=== PATIENT | female | born 1950 | race Caucasian/White ===

== ENCOUNTER → 2016-08-19 | Outpatient (CLI) | payer OTHER, MEDICARE | END | disposition home or self-care (01) | LOC: C.PATHSPEC 17:45 | PROVIDERS: ATTEND Surgery | DX: L72.3 Sebaceous cyst (principal) ==

== ENCOUNTER → 2016-11-16 | Outpatient (CLI) | payer OTHER, MEDICARE ==
--- NOTE | 2016-11-17 12:17 | MAMMOGRAPHY REPORT ---
BILATERAL DIGITAL SCREENING MAMMOGRAM WITH CAD: 11/16/2016 CLINICAL HISTORY: Routine screening. Patient has no complaints. TECHNIQUE: Bilateral CC and MLO views were obtained. Current study was also evaluated with a Comput er Aided Detection (CAD) system. COMPARISON: Comparison is made to exams dated: 10/29/2015 mammogram, 09/14/2014 mammogram, 08/01/2013 mammogram, 05/26/2012 mammogram, 05/23/2012 mammogram, and 05/04/2011 mammogram - [facility]. BREAST COMPOSITION: There are scattered areas of fibroglandular density in both breasts. FINDINGS: There are a few stable punctate microcalcifications in the anterior subareolar right [address]. A nodular asymmetry projecting over the inferior right pectoralis muscle on the MLO view appear s very similar to the 08/01/2013 mammogram, therefore likely benign. No new suspicious mass, jen ectural distortion or cluster of microcalcifications is seen. IMPRESSION: ACR BI-RADS CATEGORY 2: BENIGN There is no mammographic evidence of malignancy. A 1 year screening mammogram is recommended. The p atient will receive written notification of the results. Approximately 10% of breast cancers are not detected with mammography. A negative mammographic repor t should not delay biopsy if a clinically suggestive mass is present. Chuyita Aragon M.D. ay/:11/16/2016 16:39:12 Solar Installer Technician: Ludmila WHITEHEAD)([place]), [facility] letter sent: Normal 1/2 BI-RADS Code: ACR BI-RADS Category 2: Benign
== END | disposition home or self-care (01) ==
LOC: C.MAMM 10:28
PROVIDERS: ATTEND Obstetrics & Gynecology
DX: Z12.31 Encounter for screening mammogram for malignant neoplasm of breast (principal)

== ENCOUNTER → 2017-04-23 | Outpatient (CLI) | payer OTHER, MEDICARE ==
[2017-04-23 11:22] LABS: ALT/SGPT 30 U/L (12-78); BLOOD UREA NITROGEN 18 mg/dl (7-18); BUN/CREATININE RATIO 27.3 (10-20); CARBON DIOXIDE 29 mmol/L (21-32); CHLORIDE 108 mmol/L (98-107); CHOLESTEROL 167 mg/dl (0-200); CREATININE 0.66 mg/dl (0.60-1.20); GLUCOSE 95 mg/dl (70-99); POTASSIUM 4.2 mmol/L (3.5-5.1); SODIUM 141 mmol/L (136-145); TRIGLYCERIDES 133 mg/dl (0-150); VERY LOW DENSITY LIPOPROT CALC 27 mg/dl
[2017-04-23 11:25] LABS: ALB/GLOB RATIO 1.2 (0.9-2); ALKALINE PHOSPHATASE 82 U/L (45-117); AST/SGOT 22 U/L (15-37); CHOLESTEROL/HDL RATIO 2.8; HDL CHOLESTEROL 60 mg/dl; LDL CHOLESTEROL CALCULATED 80 mg/dl
[2017-04-23 11:28] LABS: ESTIMATED AVERAGE GLUCOSE 123 mg/dl; HA1C FLAG Normal (Normal)
== END | disposition home or self-care (01) ==
LOC: C.LABBC 07:44
PROVIDERS: ATTEND Internal Medicine
DX: I10 Essential (primary) hypertension (principal); E78.5 Hyperlipidemia, unspecified; R73.03 Prediabetes; M85.80 Other specified disorders of bone density and structure, unspecified site

== ENCOUNTER → 2017-05-03 | Outpatient (CLI) | payer OTHER, MEDICARE | END | disposition home or self-care (01) | LOC: C.PAPS 11:22 | PROVIDERS: ATTEND Obstetrics & Gynecology | DX: Z12.4 Encounter for screening for malignant neoplasm of cervix (principal) ==

== ENCOUNTER → 2017-05-18 | Outpatient (CLI) | payer OTHER, MEDICARE | END | disposition home or self-care (01) | LOC: C.LABSPEC 16:55 → C.PATHSPEC 16:56 | PROVIDERS: ATTEND Surgery | DX: L72.0 Epidermal cyst (principal) ==

== ENCOUNTER → 2017-05-27 | Outpatient (CLI) | payer OTHER, MEDICARE | END | disposition home or self-care (01) | LOC: C.MAMM 13:07 | PROVIDERS: ATTEND Physician Assistant Medical | DX: M85.851 Other specified disorders of bone density and structure, right thigh (principal); M85.852 Other specified disorders of bone density and structure, left thigh ==

== ENCOUNTER → 2017-11-17 | Outpatient (CLI) | payer OTHER, MEDICARE ==
--- NOTE | 2017-11-17 15:21 | MAMMOGRAPHY REPORT ---
BILATERAL DIGITAL SCREENING MAMMOGRAM TOMOSYNTHESIS WITH CAD: 11/17/2017 CLINICAL HISTORY: Routine screening. Patient has no complaints. TECHNIQUE: Breast tomosynthesis in addition to standard 2D mammography was performed. Current study was also evaluated with a Computer Aided Detection (CAD) system. COMPARISON: Comparison is made to exams dated: 11/16/2016 mammogram, 10/29/2015 mammogram, 09/14/2014 ma mmogram, 08/01/2013 mammogram, 05/26/2012 mammogram, and 05/23/2012 mammogram - [facility]. BREAST COMPOSITION: There are scattered areas of fibroglandular density in both breasts. FINDINGS: No suspicious masses, calcifications, or areas of architectural distortion are noted in ei ther breast. There has been no significant interval change compared to prior exams. IMPRESSION: ACR BI-RADS CATEGORY 1: NEGATIVE There is no mammographic evidence of malignancy. A 1 year screening mammogram is recommended. The pa tient will receive written notification of the results. Approximately 10% of breast cancers are not detected with mammography. A negative mammographic report should not delay biopsy if a clinically suggestive mass is present. Sharon Velazquez M.D. /:11/17/2017 11:06:38 Kindergarten Tutor: Savannah Abdullahi, [facility] letter sent: Normal 1/2 BI-RADS Code: ACR BI-RADS Category 1: Negative
== END | disposition home or self-care (01) ==
LOC: C.MAMM 10:15
PROVIDERS: ATTEND Obstetrics & Gynecology
DX: Z12.31 Encounter for screening mammogram for malignant neoplasm of breast (principal)

== ENCOUNTER 2022-06-02 21:24 | Inpatient (IN) ==
[2022-06-03 02:30] LABS: Basophils # (auto) 0.04 K/uL (0-0.2); Basophils % (auto) 0.3 %; Eosinophils # (auto) 0.32 K/uL (0-0.50); Eosinophils % (auto) 2.7 %; Hematocrit (blood only) 39.1 % (34.1-44.9); Hemoglobin 13.3 g/dl (12.0-16.0); Immature Granulocytes % (auto) 0.8 %; Lymphocytes # (auto) 1.79 K/uL (1.2-3.4); Lymphocytes % (auto) 15.2 %; Mean Corpuscular Hemoglobin 29.4 pg (25.0-34.0); Mean Corpuscular Volume 86.5 fL (80.0-100.0); Mean Platelet Volume 10.2 fL (9.4-12.3); Monocytes # (auto) 0.78 K/uL (0.24-0.82); Monocytes % (auto) 6.6 %; Neutrophils # (auto) 8.78 K/uL (1.4-6.5); Neutrophils % (auto) 74.4 %; Platelet Count 167 K/uL (130-400); RDW Coefficient of Variation 13.2 % (11.5-14.5); RDW Standard Deviation 41.5 fL (36.4-46.3); Red Blood Count 4.52 M/uL (3.93-5.22); White Blood Count 11.81 K/ul (4.8-10.8)
[2022-06-03 02:54] LABS: Albumin Globulin Ratio 1.3 (0.9-2); BUN Creatinine Ratio 40.8 (10-20); Bilirubin,Total 0.5 mg/dl (0.2-1.0); Calcium 9.3 mg/dl (8.5-10.1); Creatinine Clr Calc Pharmacy 75.1 ml/min; Est GFR (African American) 98.6 ml/min; Est GFR (Non-African American) 85.1 ml/min; Potassium 3.9 mmol/L (3.5-5.1)
[2022-06-03] MEDS ORDERED: SODIUM CHLORIDE 0.9% 500 ML IV ONE (03:00)
[2022-06-03] MEDS ORDERED: OPTIRAY 320 500ml IV ONE (05:11)
--- NOTE | 2022-06-03 06:14 | Emergency Department Note ---
History of Present Illness General Chief complaint: Leg Injury/Pain Stated complaint: PAIN AND SWELLING LEFT LEG Time Seen by Provider: 06/03/22 00:55 Source: patient Mode of arrival: ambulatory Limitations: no limitations History of Present Illness Provider complaint: left leg pain and swelling Maximum Pain Intensity: 5 This is a 72-year-old female presents emergency department complaining of left lower extremity pain and swelling. Patient states she typically does squats on a regular basis and over the weekend did more scratch than usual. She states the next day when she had pain she thought it was from this change in her exercise. She states yesterday pain was worse still and she began noticing swelling in her leg. She states today it was painful with walking and the pain was persistent and swelling appeared worse. She denied any paresthesias or specific joint pain. She denies any right lower extremity pain or swelling. She denies any change in medication or diet. No recent illness. No prior history of DVT. No change in urine or stools. No history of CHF. Home Medications Medication Instructions Recorded Confirmed Type calcium carbonate 600 mg-vitamin 1 cap PO DAILY 06/19/20 06/03/22 History D3 5 mcg (200 unit) capsule cholecalciferol (vitamin D3) 125 1,000 unit PO DAILY 12/31/20 06/03/22 History mcg (5,000 unit) capsule atorvastatin 10 mg tablet 10 mg PO DAILY 06/03/22 06/03/22 History lisinopril 20 mg tablet 20 mg PO DAILY 06/03/22 06/03/22 History Allergies Allergy/AdvReac Type Severity Reaction Status Date / Time Penicillins Allergy Unknown Unknown Verified 06/03/22 01:37 amlodipine AdvReac Intermediate fatigue Verified 06/03/22 01:37 atenolol AdvReac Intermediate Fatigued Verified 06/03/22 01:37 metoprolol [From Lopressor] AdvReac Intermediate Fatigued Verified 06/03/22 01:37 Past Med/Surg History Medical History (Updated 06/04/22 @ 08:51 by Jacey Ryder DO) Abnormal finding on mammography Adenomatous polyp of sigmoid colon Cough Cough due to CRISTIANA inhibitor DVT (deep venous thrombosis) Confirmed by lower extremity Doppler as well as CT abdomen pelvis on 06/02/2022. DVT extends from the IVC to the common iliac to the internal iliac to the external iliac to the femoral vein and to the superficial femoral veins. Dyslipidemia Endometrial polyp H/O varicella History of colonic polyps Hoarseness Hypertension Osteopenia Postmenopausal Prediabetes Vitamin D deficiency Surgical History H/O exploratory laparotomy ruptured bladder at age 3 years History of excision of lesion From trunk, on left S/P tooth extraction Status post hysteroscopic polypectomy Family History Sister Glioblastoma multiforme Mother Osteoarthritis Congestive heart failure Stroke syndrome Father Acute myocardial infarction Hypertension Hyperlipidemia Myocardial infarction Uncle Colon cancer Unknown Ovarian cancer Aunt Pancreatic cancer Aunt Acute myocardial infarction Myocardial infarction Aunt Myocardial infarction Denies family history of Breast cancer Social History Smoking Status: Unknown if ever smoked Second Hand Exposure: No; Do You Dip or Chew Tobacco: No; Tobacco Cessation Education Requested by Patient: No Hx Alcohol Use: No Hx Substance Use: No Preferred Language: German Communication Ability: Effective Visual Impairment: Limited Hearing Ability: Normal Senior It Engineer Required: No Beliefs That Will Affect Care: None marital status: Current Living Situation: Spouse current occupational status: retired Other Information That Helps Us Care for You: No Feels Safe at Home: Yes Safety Concerns: Feels Safe At This Time Childhood Exposure to Second-Hand Smoke: No caffeine: No Dental Care, Regularly: Yes Physical Activity Frequency: 5-6 Times per Week Seatbelt Use: always Sunscreen Use: Yes Do you think of yourself as: straight/heterosexual Assistive Devices: None Review of Systems A total of 10 systems reviewed and were otherwise negative All systems reviewed & are unremarkable except as noted in HPI & below Physical Exam Vital Signs Vital Signs - 24 hr 06/03/22 09:00 Pulse Rate [Finger] 84 Pulse Rhythm [Finger] Regular Pulse Strength [Finger] Normal Respiratory Rate 18 Respiratory Effort / Characteristics Non-Labored Respiratory Depth Normal Respiratory Pattern Regular Blood Pressure [Right Arm] 151/89 H Blood Pressure Mean [Right Arm] 109 Blood Pressure Position [Right Arm] Lying Pulse Oximetry 98 Oxygen Delivery Method Room Air GENERAL: alert, well appearing, well nourished, no distress, non-toxic EYE EXAM: normal conjunctiva, PERRL and EOM's grossly intact OROPHARYNX: no exudate, no erythema, lips, buccal mucosa, and tongue normal and mucous membranes are moist NECK: supple, no nuchal rigidity, no adenopathy, non-tender LUNGS: Clear to auscultation. Normal chest wall mechanics, no w/r/r HEART: no murmurs, S1 normal and S2 normal ABDOMEN: abdomen soft, non-tender, normo-active bowel sounds, no masses, no rebound or guarding. BACK: Back is symmetrical on inspection and there is no deformity, no midline tenderness, no CVA tenderness. SKIN: no rashes and no bruising UPPER EXTREMITIES: upper extremities are grossly normal. FROM, nml pulses b/l. LOWER EXTREMITIES: No pitting edema. FROM, nml pulses b/l. Pain with palpation in the area of the anterior aspect of the left proximal lower extremity. Edema is generally noted to the left lower extremity although not pitting. No joint effusion. No petechiae. NEURO EXAM: Normal sensorium, cranial nerves II-XII grossly intact, normal speech, no gross weakness of arms, no gross weakness of legs. Gross sensation intact. Course Administered Medications Atorvastatin Calcium (Atorvastatin 10 Mg Tab) 10 mg PO DAILY [facility] Stop: 07/03/22 12:04 Last Admin: 06/04/22 07:58 Dose: 10 mg Documented By: JOSE ALBERTO Admin: 06/03/22 13:41 Dose: 10 mg Documented By: NICOLÁS Calcium/Vitamin D (Calcium 600mg + Vit D 400 Iu Tab) 1 tab PO DAILY [facility] Stop: 07/04/22 08:59 Last Admin: 06/04/22 07:58 Dose: 1 tab Documented By: JOSE ALBERTO Heparin Sodium/Dextrose (Heparin Sodium/Dextrose) 25,000 units in 500 mls @ 24 mls/hr IV .[id number] [facility]; Protocol Stop: 07/03/22 08:59 Last Titration: 06/04/22 08:41 Dose: 1,100 units/hr, 22 mls/hr Documented By: JOSE ALBERTO Co-signed By: RADHA Admin: 06/04/22 03:46 Dose: 1,150 units/hr, 23 mls/hr Documented By: VINOD Co-signed By: JOHANNA Titration: 06/04/22 03:46 Dose: 1,150 units/hr, 23 mls/hr Documented By: VINOD Co-signed By: JOHANNA Titration: 06/03/22 19:03 Dose: 1,150 units/hr, 23 mls/hr Documented By: VINOD Co-signed By: NICOLÁS Titration: 06/03/22 17:24 Dose: 1,150 units/hr, 23 mls/hr Documented By: NICOLÁS Co-signed By: MG Admin: 06/03/22 09:09 Dose: 1,200 units/hr, 24 mls/hr Documented By: DE Co-signed By: GENTRY Lisinopril (Lisinopril 20 Mg Tab) 20 mg PO DAILY [facility] Stop: 07/03/22 12:04 Last Admin: 06/04/22 07:58 Dose: 20 mg Documented By: SMKiet Admin: 06/03/22 13:41 Dose: 20 mg Documented By: NICOLÁS Vitamin D (Cholecalciferol 1,000 Units 25 Mcg Tab) 1,000 units PO DAILY [facility] Stop: 07/04/22 08:59 Last Admin: 06/04/22 07:58 Dose: 1,000 units Documented By: SMKiet Discontinued Medications Enoxaparin Sodium (Enoxaparin 150 Mg/Ml Syr) 135 mg SQ Q24H [facility] Stop: 07/03/22 07:59 Last Admin: 06/03/22 09:12 Dose: Not Given Documented By: DE Heparin Sodium (Porcine) (Heparin Sod (Porcine) 1000 Unit/Ml) 1 units IV NOW ONE Stop: 06/03/22 08:50 Last Admin: 06/03/22 09:10 Dose: Not Given Documented By: DE Heparin Sodium (Porcine) (Heparin Sod (Porcine) 1000 Unit/Ml) 5,000 units IV NOW ONE Stop: 06/03/22 09:01 Last Admin: 06/03/22 09:10 Dose: 5,000 units Documented By: DE Co-signed By: GENTRY Heparin Sodium/Dextrose (Heparin Iv Adult Wt-Based Standard With Bolus Protocol) 1 each IV NOW STA; Protocol Stop: 06/03/22 08:34 Last Admin: 06/03/22 09:33 Dose: Not Given Documented By: DE Heparin Sodium/Dextrose (Heparin Iv Adult Wt-Based Standard With Bolus Protocol) 1 each IV Q15M STA; Protocol Stop: 06/03/22 08:37 Last Admin: 06/03/22 09:33 Dose: Not Given Documented By: AP Sodium Chloride (Nss) 500 mls @ 999 mls/hr IV .Q31M ONE Stop: 06/03/22 03:30 Last Infusion: 06/03/22 04:20 Dose: 0 mls/hr Documented By: Admin: 06/03/22 03:48 Dose: 999 mls/hr Documented By: MARLEN Ioversol (Optiray 320 500ml) 119 ml IV ONCE ONE Stop: 06/03/22 05:12 Last Admin: 06/03/22 05:12 Dose: 119 ml Documented By: HANH Perflutren Lipid Microsphere (Perflutren Lipid Microsphere (Definity)) 2 ml IV ONCE ONE Stop: 06/03/22 14:48 Last Admin: 06/03/22 14:48 Dose: 2 ml Documented By: CINTHIA Critical Care Time Critical Care Time: Yes Total Critical Care Time: 46 Critical care of 46 min performed to assess and manage high likelihood of life- threatening extensive and proximal DVT, involving labs and imaging performed with assessment to evaluate extensive and proximal DVT diagnosis with frequent reassessment. This time includes bedside time, treatment discussions with patient/family/consultants, documentation time and excludes procedure time. Medical Decision Making Differential Diagnosis Differential diagnosis includes etiology such as DVT, superficial thrombophlebitis, Casillas's cyst, musculoskeletal strain, acute tendon rupture, infection, trauma, and others were considered. Medical Records Attestation: I reviewed the patient's medical records. Home Medications Current Medication List: was personally reviewed by me Laboratory Data Attestation: I reviewed the patient's lab results. Result diagrams: 06/04/22 06:00 06/04/22 06:00 Lab Results 06/03/22 06/03/22 06/03/22 Range/Units 02:22 02:22 02:22 WBC 11.81 H (4.8-10.8) K/ul RBC 4.52 (3.93-5.22) M/uL Hgb 13.3 (12.0-16.0) g/dl Hct 39.1 (34.1-44.9) % MCV 86.5 (80.0-100.0) fL MCH 29.4 (25.0-34.0) pg MCHC 34.0 (32.0-36.0) g/dL RDW Std Deviation 41.5 (36.4-46.3) fL RDW Coeff of Lianne 13.2 (11.5-14.5) % Plt Count 167 (130-400) K/uL MPV 10.2 (9.4-12.3) fL Immature Gran % (Auto) 0.8 % Neut % (Auto) 74.4 % Lymph % (Auto) 15.2 % [place] % (Auto) 6.6 % Eos % (Auto) 2.7 % Baso % (Auto) 0.3 % Neut # (Auto) 8.78 H (1.4-6.5) K/uL Lymph # (Auto) 1.79 (1.2-3.4) K/uL [place] # (Auto) 0.78 (0.24-0.82) K/uL Eos # (Auto) 0.32 (0-0.50) K/uL Baso # (Auto) 0.04 (0-0.2) K/uL Immature Gran # (Auto) 0.10 H (0.00-0.02) K/uL APTT (21.0-31.0) Seconds PTT Ratio Sodium 135 L (136-145) mmol/L Potassium 3.9 (3.5-5.1) mmol/L Chloride 102 (98-107) mmol/L Carbon Dioxide 25 (21-32) mmol/L Anion Gap 8 (3-11) BUN 29 H (6-23) mg/dl Creatinine 0.71 (0.6-1.2) mg/dl Est Cr Clr Drug Dosing 75.1 ml/min Est GFR ( Amer) 98.6 ml/min Est GFR (Non-Af Amer) 85.1 ml/min BUN/Creatinine Ratio 40.8 H (10-20) Glucose 109 H (70-99(Fasting)) mg/dl Calcium 9.3 (8.5-10.1) mg/dl Total Bilirubin 0.5 (0.2-1.0) mg/dl AST 16 (13-39) U/L ALT 16 (7-52) U/L Alkaline Phosphatase 68 (34-104) U/L Total Creatine Kinase 106 (26-192) U/L Total Protein 7.0 (6.0-8.3) gm/dl Albumin 4.0 (3.4-5.0) gm/dl Globulin 3.0 (2.5-4.0) gm/dl Albumin/Globulin Ratio 1.3 (0.9-2) Folate 14.78 (>5.38) ng/ml SARS-CoV-2 (PCR) (Negative) Influenza Type A (PCR) (Neg) Influenza Type B (PCR) (Neg) RSV (RT-PCR) (Neg) 06/03/22 06/03/22 Range/Units 07:25 08:42 WBC (4.8-10.8) K/ul RBC (3.93-5.22) M/uL Hgb (12.0-16.0) g/dl Hct (34.1-44.9) % MCV (80.0-100.0) fL MCH (25.0-34.0) pg MCHC (32.0-36.0) g/dL RDW Std Deviation (36.4-46.3) fL RDW Coeff of Lianne (11.5-14.5) % Plt Count (130-400) K/uL MPV (9.4-12.3) fL Immature Gran % (Auto) % Neut % (Auto) % Lymph % (Auto) % [place] % (Auto) % Eos % (Auto) % Baso % (Auto) % Neut # (Auto) (1.4-6.5) K/uL Lymph # (Auto) (1.2-3.4) K/uL [place] # (Auto) (0.24-0.82) K/uL Eos # (Auto) (0-0.50) K/uL Baso # (Auto) (0-0.2) K/uL Immature Gran # (Auto) (0.00-0.02) K/uL APTT 23.5 (21.0-31.0) Seconds PTT Ratio 0.9 Sodium (136-145) mmol/L Potassium (3.5-5.1) mmol/L Chloride (98-107) mmol/L Carbon Dioxide (21-32) mmol/L Anion Gap (3-11) BUN (6-23) mg/dl Creatinine (0.6-1.2) mg/dl Est Cr Clr Drug Dosing ml/min Est GFR ( Amer) ml/min Est GFR (Non-Af Amer) ml/min BUN/Creatinine Ratio (10-20) Glucose (70-99(Fasting)) mg/dl Calcium (8.5-10.1) mg/dl Total Bilirubin (0.2-1.0) mg/dl AST (13-39) U/L ALT (7-52) U/L Alkaline Phosphatase (34-104) U/L Total Creatine Kinase (26-192) U/L Total Protein (6.0-8.3) gm/dl Albumin (3.4-5.0) gm/dl Globulin (2.5-4.0) gm/dl Albumin/Globulin Ratio (0.9-2) Folate (>5.38) ng/ml SARS-CoV-2 (PCR) NEGATIVE (Negative) Influenza Type A (PCR) Negative (Neg) Influenza Type B (PCR) Negative (Neg) RSV (RT-PCR) Negative (Neg) Imaging Data My Impression: xr femur: no obvious fracture or dislocation Radiologist's Impression: Abdomen/Pelvis CT 06/03/22 04:08 CT OF THE ABDOMEN AND PELVIS WITH CONTRAST CLINICAL HISTORY: prox DVT LLE COMPARISON STUDY: None. TECHNIQUE: Following IV administration of 119 mL of Optiray, axial images of the abdomen and pelvis were obtained from the lung bases to the proximal femurs. Images were reviewed in the axial, sagittal, and coronal planes. IV contrast was administered without complication. Automated exposure control was utilized for the study. A dose lowering technique was utilized adhering to the principles of ALARA. CT DOSE: 803.17 mGy.cm FINDINGS: Please note that the chest CT will be reported separately. There is a small hiatal hernia. No pneumatosis, free air or portal venous gas is present. Liver, spleen spleen and pancreas are unremarkable as are the kidneys. There is a 1.6 cm left adrenal nodule and a 1 cm right adrenal nodule. No abdominal or pelvic lymphadenopathy is present. No evidence for a bowel obstruction. Caliber and wall thickness of small and large bowel are normal. There is extensive thrombus within the left common iliac, external iliac, internal iliac, common femoral and visualized portions of the superficial femoral vein. This corresponds the thrombus shown on ultrasound. Thrombus slightly extends into the IVC. There is mild compression of the left common iliac vein by the right common iliac artery. Stranding adjacent to the vessels is noted as well as within the left thigh. A 3.9 cm enhancing focus within the anterior aspect of the uterine body is present. IMPRESSION: 1. Extensive deep venous thrombus within the left common iliac, external iliac, internal iliac, common femoral and superficial femoral veins. Thrombus slightly extends into the IVC. Mild compression of the left common iliac vein by the right common iliac artery. This distribution raises the possibility of May Thurner syndrome although this typically occurs in younger patients. Vessels expanded with adjacent stranding. This thrombus is likely acute. Findings discussed with Dr. Ryder at time of dictation. 2. 3.9 cm enhancing lesion within the anterior aspect of the uterine body. This probably reflects a fibroid however a nonemergent pelvic ultrasound is recommen ded. 3. Bilateral adrenal nodules measuring up to 1.6 cm. These are indeterminate but statistically benign in the absence of known malignancy and favor adenomas. ACT 112: Negative or not required by law. Electronically signed by: Hu Terrell M.D. 06/03/2022 7:10 AM US VENOUS LEFT LOWER EXTREMITY: Extensive occlusive venous thrombus noted involving the left external iliac vein, common femoral, superficial femoral popliteal posterior tibial and peroneal veins. Radiologist: Artur Simpson MD CTA CHEST: No evidence of PE. Lungs are clear. No pleural effusions. No adenopathy. Heart size is normal. Aorta is unremarkable. Radiologist: Artur Simpson MD CT ABDOMEN & PELVIS With Contrast: INDICATION: TECHNIQUE: Multiple, contiguous axial cuts of the abdomen and pelvis are obtained from the lung bases to the ischial tuberosities following the administration of IV contrast. Sagittal and coronal reformatted images are available. COMPARISON: FINDINGS: The lung bases are clear. The liver and spleen are normal in size and free of mass lesions. The gallbladder, bile ducts and pancreas are normal. The adrenal gland are unremarkable. The kidneys are normal in size and contour. No lesion or hydronephrosis. The appendix is unremarkable, as is the rest of the GI tract. Aorta is normal caliber. No adenopathy or extraluminal air. The osseous structures are normal IMPRESSION:Normal enhanced CT of the abdomen and pelvis. Radiologist: Artur Simpson MD [facility] Narrative An order was placed for continuous cardiac monitoring. The monitor shows a rate of _68_ with _normal sinus_ rhythm. This is a well-appearing 72-year-old female who presents due to acute left lower extremity pain and edema which she originally thought was musculoskeletal in nature. Labs drawn and sent, and ultrasound ordered. X-ray had been ordered by nursing staff prior to my evaluation and was reviewed at bedside with the patient. Patient most concerned for DVT. Patient found to have extensive DVT extending proximally in the left lower extremity. Patient's other labs reassuring. Due to extensive and proximal nature as well as no obvious precipitating factors and no history of prior DVT, patient sent for CT chest to rule out PE as well as CT abdomen and pelvis to further evaluate for any more central extension of the proximal clot. Patient found to have some extension into the IVC. Case was discussed with hospitalist for additional evaluation and management. Patient started on heparin drip. Impression & Plan Acute pain of left lower extremity, DVT (deep venous thrombosis), Edema of left lower leg Discharge Plan Visit Data Chief Complaint: Leg Injury/Pain Stated Complaint: PAIN AND SWELLING LEFT LEG ED Provider: Jacey Ryder Discharge Problem: Acute pain of left lower extremity, DVT (deep venous thrombosis), Edema of left lower leg Patient Disposition: Admitted As Inpatient Discharge Instructions Interventions: ED Discharge Assessment Last Done: 06/03/22 10:47
[2022-06-03] MEDS ORDERED: ENOXAPARIN 1.5 MG/KG SC STA (07:09)
--- NOTE | 2022-06-03 07:12 | CT Scan Report ---
CT OF THE ABDOMEN AND PELVIS WITH CONTRAST CLINICAL HISTORY: prox DVT LLE COMPARISON STUDY: None. TECHNIQUE: Following IV administration of 119 mL of Optiray, axial images of the abdomen and pelvis w ere obtained from the lung bases to the proximal femurs. Images were reviewed in the axial, sagittal, and coronal planes. IV contrast was administered without complication. Automated exposure control w as utilized for the study. A dose lowering technique was utilized adhering to the principles of MILAGROS Alatorre. CT DOSE: 803.17 mGy.cm FINDINGS: Please note that the chest CT will be reported separately. There is a small hiatal hernia. No pneumatosis, free air or portal venous gas is present. Liver, spleen spleen and pancreas are unrem arkable as are the kidneys. There is a 1.6 cm left adrenal nodule and a 1 cm right adrenal nodule. No abdominal or pelvic lymphadenopathy is present. No evidence for a bowel obstruction. Caliber and wal l thickness of small and large bowel are normal. There is extensive thrombus within the left common i liac, external iliac, internal iliac, common femoral and visualized portions of the superficial femor al vein. This corresponds the thrombus shown on ultrasound. Thrombus slightly extends into the IVC. T here is mild compression of the left common iliac vein by the right common iliac artery. Stranding ad jacent to the vessels is noted as well as within the left thigh. A 3.9 cm enhancing focus within the anterior aspect of the uterine body is present. IMPRESSION: 1. Extensive deep venous thrombus within the left common iliac, external iliac, internal iliac, commo n femoral and superficial femoral veins. Thrombus slightly extends into the IVC. Mild compression of the left common iliac vein by the right common iliac artery. This distribution raises the possibility of May Thurner syndrome although this typically occurs in younger patients. Vessels expanded with ad jacent stranding. This thrombus is likely acute. Findings discussed with Dr. Ryder at time of dict ation. 2. 3.9 cm enhancing lesion within the anterior aspect of the uterine body. This probably reflects a f ibroid however a nonemergent pelvic ultrasound is recommended. 3. Bilateral adrenal nodules measuring up to 1.6 cm. These are indeterminate but statistically benign in the absence of known malignancy and favor adenomas. ACT 112: Negative or not required by law. Electronically signed by: Hu Terrell M.D. 06/03/2022 7:10 AM
--- NOTE | 2022-06-03 07:47 | Ultrasound Report ---
LEFT LOWER EXTREMITY VENOUS DOPPLER CLINICAL HISTORY: Left lower extremity edema COMPARISON STUDY: No previous studies for comparison. TECHNIQUE: Sonography of the deep venous system of the left lower extremity was performed. Compressi on and augmentation were evaluated. FINDINGS: There is extensive occlusive deep venous thrombus within the left lower extremity. The ves sels are expanded. Note is made of dependent thrombus within the left external iliac, common femoral, femoral, popliteal, posterior tibial and peroneal veins. There is also thrombus within the left grea ter saphenous, lesser saphenous and gastrocnemius veins. IMPRESSION: Extensive deep venous thrombus within the left lower extremity, including thrombus within the left iliac veins. Thrombus is likely acute. ACT 112: Negative or not required by law. Electronically signed by: Hu Terrell M.D. 06/03/2022 7:46 AM
--- NOTE | 2022-06-03 07:57 | XRay Report ---
XR femur LT 2V routine CLINICAL HISTORY: pain after workout COMPARISON: None FINDINGS: No fracture or osseous lesion within the left femur is identified. Alignment of the left h ip and left knee is anatomic. Left hip joint space is preserved. There is minimal osteophytosis of th e left hip. There is medial compartment joint space narrowing of the left knee with osteophytosis wit hin the medial and lateral compartments of the left knee. IMPRESSION: No fracture within the left femur. No osseous lesion. ACT 112: Negative or not required by law. Electronically signed by: Hu Terrell M.D. 06/03/2022 7:56 AM
[2022-06-03] MEDS ORDERED: ENOXAPARIN 150 MG/ML SYR SQ SCH (08:00)
[2022-06-03 08:16] LABS: Influenza A virus by PCR Negative (Neg); Influenza B virus by PCR Negative (Neg); RSV by PCR Negative (Neg); SARS CoV2 RNA(COVID-19) InHosp NEGATIVE (Negative)
[2022-06-03] MEDS ORDERED: Heparin IV Adult Wt-Based Standard WITH Bolus Protocol IV STA ×2 (08:33→08:36)
--- NOTE | 2022-06-03 08:42 | CT Scan Report ---
CT ANGIOGRAM OF THE CHEST CLINICAL HISTORY: Dyspnea. Lower extremity edema. Deep venous thrombosis. COMPARISON STUDY: Chest x-ray dated 04/06/2019. TECHNIQUE: Following the IV administration of 119 cc of Optiray 320, CT angiogram of the chest was pe rformed from the upper abdomen to the thoracic inlet utilizing the pulmonary embolus protocol. Images are reviewed in the axial, sagittal, and coronal planes. 3-D MIPS images are created and assessed. I V contrast was administered without complication. A dose lowering technique was utilized adhering to the principles of ALARA. FINDINGS: Thyroid: Mildly enlarged and heterogeneous. Thoracic aorta: There is moderate atherosclerotic calcification of the thoracic aorta, which is chidi l in caliber and demonstrates standard 3-vessel arch anatomy. No dissection is seen. Pulmonary vasculature: The pulmonary trunk is normal in caliber. There are no filling defects identif ied in main, lobar, or segmental pulmonary branches to suggest pulmonary embolus. Heart: The heart is top normal in size and without pericardial effusion. Lungs and pleural spaces: Evaluation of the lung parenchyma is degraded by motion artifact. There is no airspace consolidation or pleural effusion. Atelectasis is noted at the lung bases. Minimal secret ions are seen within the trachea. There is a 5 mm right lower lobe pulmonary nodule seen on image #[id number]. Mediastinum: There is no mediastinal lymphadenopathy. Zita: Clear. Axillae: There is no axillary lymphadenopathy. Upper abdomen: There is a small hiatal hernia. Bilateral adrenal adenomas measure up to 1.6 cm. Skeletal structures: The skeletal structures are osteopenic. Degenerative change is noted in the thor acic spine. No lytic or blastic bony lesions are seen. IMPRESSION: 1. There is no evidence of pulmonary embolus in the main, lobar, or segmental pulmonary arteries. 2. There is no airspace consolidation or pleural effusion. 3. There is a 5 mm right lower lobe pulmonary nodule. This is pathologically indeterminate and can be followed as per Fleischner criteria. See below. 4. Additional findings as above. Please refer to below summary of Fleischner criteria recommendations for follow-up of incidental CT n odules (Byron gInacio, Guidelines for management of small pulmonary nodules detected on CT scans: A sta tement from the Fleischner Society, Radiology 237: [phone].) SOLID NODULES Solitary nodule size: <6 mm * low risk patients: no follow-up needed * high risk patients: optional CT at 12 months Solitary nodule size: 6-8 mm * low risk patients: follow-up at 6-12 months, then consider further follow-up at 18-24 months * high risk patients: initial follow-up CT at 6-12 months and then at 18-24 months if no change Solitary nodule size: >8 mm * either low or high risk patients - consider follow-up CT at 3 months, and/or CT-PET, and/or biopsy Multiple nodules size: <6 mm * low risk patients: no routine follow-up * high risk patients: optional CT at 12 months Multiple nodules size: 6-8 mm * low risk patients: follow-up at 3-6 months, then consider further follow-up at 18-24 months * high risk patients: follow-up at 3-6 months, then at 18-24 months if no change Multiple nodules size: >8 mm * low risk patients: follow-up at 3-6 months, then consider further follow-up at 18-24 months * high risk patients: follow-up at 3-6 months, then at 18-24 months if no change Note: newly detected indeterminate nodule in persons 35 years of age or older. * low risk patients: minimal or absent history of smoking and/or other known risk factors * high risk patients: history of smoking or of other known risk factors (e.g. first degree relative with lung cancer, or exposure to asbestos, radon, uranium) * if a nodule up to 8 mm is partly solid or is ground glass further follow-up is required after 24 m onths to exclude possible slow growing adenocarcinoma (TEJAL) SUBSOLID NODULES Solitary pure ground-glass nodule * nodule size <6 mm - no CT follow-up required * nodule size >=6 mm - follow-up CT at 6-12 months, then every 2 years until 5 years Solitary part-solid nodule * nodule size <6 mm - no CT follow-up required * nodule size >=6 mm - follow-up CT at 3-6 months. If unchanged, and solid component remains <6 mm, then annual follow-up for 5 years Multiple subsolid nodules * nodule size <6 mm - follow-up CT at 3-6 months, consider further follow-up at 2 and 4 years if sta ble * nodule size >=6 mm - follow-up CT at 3-6 months, subsequent management based on the most suspiciou s nodule(s) ACT 112: Negative or not required by law. Electronically signed by: Raheem Couch M.D. 06/03/2022 8:41 AM
[2022-06-03] MEDS ORDERED: HEPARIN SOD (PORCINE) 1000 UNIT/ML IV ONE ×2 (08:49→09:00)
[2022-06-03] MEDS: HEPARIN SODIUM/DEXTROSE 25,000 UNITS/500 ML BAG IV SCH (09:09)
[2022-06-03 09:13] LABS: Partial Thromboplastin Ratio 0.9; Partial Thromboplastin Time 23.5 Seconds (21.0-31.0)
--- NOTE | 2022-06-03 09:54 | History & Physical Report ---
Date of Service June 03, 2022 Assessment & Plan (1) DVT (deep venous thrombosis): Plan: Attending: Dr. Julien Impression: 72-year-old female who was in her usual state of health until this weekend when being she began having left groin pain. Pain extended into her left upper leg and she noticed swelling of her thigh and calf. She presented to the emergency department was found to have extensive DVT from the IVC down to the superficial femoral veins. CTA of the chest was negative for pulmonary embolus or acute findings. Patient is a lifelong non-smoker with no history of malignancy or family history of thromboembolic disease. This would be classified as an unprovoked DVT without clear etiology at this time. Recommendations: * Discussed with Dr. Kelly vascular surgery. He agrees with heparin drip per protocol. Complete bedrest for 3 days and then convert to oral anticoagulation * Patient most likely will be required to be on lifelong anticoagulation * We will check a folic acid and homocystine level * Patient started on anticoagulations and no further hypercoagulable work-up at this time. If the patient is going to be on lifelong anticoagulation, no specific need for outpatient hematology but will defer to patient for this dec ision * Patient has no history of malignancy. She does have history of adenomatous polyps which have been cleared through serial colonoscopy * New imaging does reveal a right lower lobe 5 mm nodule. Follow-up CT of the chest in 3 months would be recommended. * Patient also has 3.9 cm enhancing lesion within the anterior aspect of the uterine body. While this is most likely a fibroid, will request pelvic ultrasound for further evaluation as we do not have any other explanation for the patient's DVT * Patient with bilateral adrenal nodules measuring up to 1.6 cm. Statistically benign but will review on pelvic ultrasound. * Will also check an echocardiogram to rule out PFO and adherent clot although EKG is within normal limits and there is no evidence of tachyarrhythmia. * EKG daily x2 * Patient will require monitoring on telemetry while on bedrest. (2) Dyslipidemia: Plan: * Will continue with patient's atorvastatin 10 mg daily * Further work-up as an outpatient (3) Hypertension: Plan: * Hemodynamically stable * Continue patient's home dose of lisinopril 20 mg p.o. daily * Monitor on telemetry with vital signs per protocol * EKG with no specific ST changes or arrhythmia (4) Osteopenia: Plan: * Outpatient management * In addition to patient's calcium carbonate with vitamin D, will start patient on multivitamin (5) Prediabetes: Plan: * Most recent hemoglobin A1c in January 2022 is 6.1% * No indication for BSG's or glycemic monitoring at this time * Continue with heart healthy diet (6) DVT prophylaxis: Plan: * Extensive DVT to the left lower extremity extending into the IVC. Further management as listed above * Continue heparin drip. Anticipate changing to oral anticoagulant prior to discharge Please refer to Dr. Julien's addendum for further recommendations and corrections. Admission and Anticipated Discharge Date Admission Date: Admitted on 06/03/2022. Anticipate a minimum of 3-day stay for intravenous heparin drip. History of Present Illness Chief Complaint: Left leg pain Primary Care Provider: Jeremy Toledo MD Attending: Dr. Julien This is a 72-year-old female with a past medical history including hypertension, hypercholesterolemia, osteopenia, prediabetes, vitamin D deficiency, adenomatous polyp of the sigmoid colon, obesity with a BMI of 34.2 kg/m secondary to excess calories. This is a very active female who walks 1-1/2 hours/day, she golfs, she is active with no recent periods of sedentary activity or travel. Patient was in her usual state of health until this past weekend when she started having some groin pain on the left side. This pain seemed to extend into her leg and thigh throughout the weekend. She attempted to use ice and heat as well as rubbing her leg to resolve the achiness. As this progressed patient suggested to her that it was probably a DVT and they decided to present to the emergency department for evaluation. She then had a venous Doppler study which showed extensive deep venous thrombus within the left lower extremity including th rombus within the left iliac vein. Inasmuch as this was unprovoked with no prior history of malignancy, hormone replacement, tobacco abuse history, a CT of the abdomen pelvis as well as a chest CTA was performed. This revealed extensive deep venous thrombus within the left common iliac, external iliac, internal iliac, common femoral and superficial femoral veins. The thrombus extended into the IVC. There was mild compression of the left common iliac vein by the right common iliac artery. There is also a 3.9 cm enhancing lesion within the anterior aspect of the uterine body. Bilateral adrenal nodules measuring up to 1.6 cm and are statistically benign favoring adenomas. Patient has no history of malignancy. She is up-to-date with her mammograms. She was found to have a precancerous polyp on colonoscopy and gets regular colonoscopies which have all been cleared up. Patient has a sister who in her 60s of glioblastoma. Father at age 74 of a myocardial infarction. Mother at age 92 of old age with no acute etiology. Patient is a lifelong non-smoker and has no exposure to carcinogenic's that she is aware of. Patient has no acute shortness of breath. She has no pleural pain. She has no awareness of tachyarrhythmia. She has no hypoxia on room air. Vital signs are stable including temperature is 37.0 C Case was discussed with Dr. Kelly from vascular surgery. He agrees with heparin drip for its anti-inflammatory properties and management. Currently recommending 3 days of bedrest followed by oral anticoagulation. No indication for catheter directed thrombolysis or surgical thrombolysis. Case also discussed with Dr. Julien. Please refer to his addendum for recommendations and corrections. Allergies Allergy/AdvReac Type Severity Reaction Status Date / Time Penicillins Allergy Unknown Unknown Verified 06/03/22 01:37 amlodipine AdvReac Intermediate fatigue Verified 06/03/22 01:37 atenolol AdvReac Intermediate Fatigued Verified 06/03/22 01:37 metoprolol [From Lopressor] AdvReac Intermediate Fatigued Verified 06/03/22 01:37 Home Medications Medication Instructions Recorded Confirmed Type calcium carbonate 600 mg-vitamin 1 cap PO DAILY 06/19/20 06/03/22 History D3 5 mcg (200 unit) capsule cholecalciferol (vitamin D3) 125 1,000 unit PO DAILY 12/31/20 06/03/22 History mcg (5,000 unit) capsule atorvastatin 10 mg tablet 10 mg PO DAILY 06/03/22 06/03/22 History lisinopril 20 mg tablet 20 mg PO DAILY 06/03/22 06/03/22 History Past Med/Surg History Medical History (Updated 06/03/22 @ 09:52 by Raheem Sheehan PA-C) Abnormal finding on mammography Adenomatous polyp of sigmoid colon Cough Cough due to CRISTIANA inhibitor DVT (deep venous thrombosis) Confirmed by lower extremity Doppler as well as CT abdomen pelvis on 06/02/2022. DVT extends from the IVC to the common iliac to the internal iliac to the external iliac to the femoral vein and to the superficial femoral veins. Dyslipidemia Endometrial polyp H/O varicella History of colonic polyps Hoarseness Hypertension Osteopenia Postmenopausal Prediabetes Vitamin D deficiency Surgical History H/O exploratory laparotomy ruptured bladder at age 3 years History of excision of lesion From trunk, on left S/P tooth extraction Status post hysteroscopic polypectomy Family History Sister Glioblastoma multiforme Mother Osteoarthritis Congestive heart failure Stroke syndrome Father Acute myocardial infarction Hypertension Hyperlipidemia Myocardial infarction Uncle Colon cancer Unknown Ovarian cancer Aunt Pancreatic cancer Aunt Acute myocardial infarction Myocardial infarction Aunt Myocardial infarction Denies family history of Breast cancer Social History Smoking Status: Unknown if ever smoked Second Hand Exposure: No; Do You Dip or Chew Tobacco: No; Tobacco Cessation Education Requested by Patient: No Hx Alcohol Use: No Hx Substance Use: No Preferred Language: Romansh Communication Ability: Effective Visual Impairment: Limited Hearing Ability: Normal Waste Water Or Water Plant Operator Required: No Beliefs That Will Affect Care: None marital status: Current Living Situation: Spouse current occupational status: retired Other Information That Helps Us Care for You: No Feels Safe at Home: Yes Safety Concerns: Feels Safe At This Time Childhood Exposure to Second-Hand Smoke: No caffeine: No Dental Care, Regularly: Yes Physical Activity Frequency: 5-6 Times per Week Seatbelt Use: always Sunscreen Use: Yes Do you think of yourself as: straight/heterosexual Assistive Devices: None Review of Systems Review of Systems: A total of 10 systems was reviewed and is negative other than as listed in the HPI Physical Exam Physical Exam: GENERAL : No acute distress EYES: No icterus, gaze conjugate. Pupils equal round and reactive to light NOSE: No evidence of epistaxis MOUTH: No lesions or candidiasis. Tongue is midline. No evidence of dental caries. Mucosa is moist NECK: Supple. No carotid bruits appreciated LUNGS: CTA B/L, no wheezes, rales or rhonchi HEART: Regular, rate controlled. No evidence of murmur rubs or gallop ABDOMEN: Soft, NT, ND, BS Present. Patient was not palpated deeply secondary to IVC DVT. Patient was auscultated and is in no evidence of abdominal bruit EXTREMITIES: LLE edema from the thigh to the calf, pedal pulses intact and equal bilaterally. No edema of either foot or ankle. Feet are warm NEURO: A&OX3. Pupils equal round and reactive to light. No pronator drift. Tongue is midline. No facial droop. Strength is equal and appropriate to upper and lower extremities. Cerebellar function is intact with rapid alternating movements and [id number]. Toes are downgoing bilaterally. Gait is deferred. No slurred speech or aphasia. No evidence of focal neurological deficit. Results & Data Results & Data ([facility]) Vital Signs (Past 12 Hours) Vital Signs Temp Pulse Pulse Resp BP BP Pulse Ox 06/03/22 09:00 84 18 151/89 H 98 06/03/22 06:20 102 H 18 112/84 94 06/03/22 03:48 70 20 144/68 H 96 06/02/22 21:50 37 C 115 H 20 139/76 96 O2 Del Method 06/03/22 09:00 Room Air 06/03/22 06:20 Room Air 06/03/22 03:48 Room Air 06/02/22 21:50 Room Air Critical Care Results & Data Vital Signs (Past 12 Hours) Vital Signs Temp Pulse Pulse Resp BP BP Pulse Ox 06/03/22 09:00 84 18 151/89 H 98 06/03/22 06:20 102 H 18 112/84 94 06/03/22 03:48 70 20 144/68 H 96 06/02/22 21:50 37 C 115 H 20 139/76 96 O2 Del Method 06/03/22 09:00 Room Air 06/03/22 06:20 Room Air 06/03/22 03:48 Room Air 06/02/22 21:50 Room Air Lab & Micro Results (Past 24 Hours) RBC 4.52 M/uL (3.93-5.22) 06/03/22 WBC 11.81 K/ul (4.8-10.8) H 06/03/22 Hgb 13.3 g/dl (12.0-16.0) 06/03/22 Hct 39.1 % (34.1-44.9) 06/03/22 MCV 86.5 fL (80.0-100.0) 06/03/22 MCH 29.4 pg (25.0-34.0) 06/03/22 MCHC 34.0 g/dL (32.0-36.0) 06/03/22 RDW Standard Deviation 41.5 fL (36.4-46.3) 06/03/22 RDW Coefficient of Variation 13.2 % (11.5-14.5) 06/03/22 Plt Count 167 K/uL (130-400) 06/03/22 MPV 10.2 fL (9.4-12.3) 06/03/22 Neutrophils (%) (Auto) 74.4 % 06/03/22 Lymphocytes (%) (Auto) 15.2 % 06/03/22 Monocytes # (Auto) 0.78 K/uL (0.24-0.82) 06/03/22 Eosinophils # (Auto) 0.32 K/uL (0-0.50) 06/03/22 Immature Granulocyte % (Auto) 0.8 % 06/03/22 Neutrophils # (Auto) 8.78 K/uL (1.4-6.5) H 06/03/22 Lymphocytes # (Auto) 1.79 K/uL (1.2-3.4) 06/03/22 Monocytes # (Auto) 0.78 K/uL (0.24-0.82) 06/03/22 Eosinophils # (Auto) 0.32 K/uL (0-0.50) 06/03/22 Basophils # (Auto) 0.04 K/uL (0-0.2) 06/03/22 Immature Granulocyte # (Auto) 0.10 K/uL (0.00-0.02) H 06/03 Na 135 mmol/L (136-145) L 06/03/22 K 3.9 mmol/L (3.5-5.1) 06/03/22 Cl 102 mmol/L (98-107) 06/03/22 CO2 25 mmol/L (21-32) 06/03/22 Anion Gap 8 (3-11) 06/03/22 BUN 29 mg/dl (6-23) H 06/03/22 Creatinine 0.71 mg/dl (0.6-1.2) 06/03/22 Estimated GFR ( Amer) 98.6 ml/min 06/03/22 Estimated GFR (Non-Af Amer) 85.1 ml/min 06/03/22 BUN/Creatinine Ratio 40.8 (10-20) H 06/03/22 Glu 109 mg/dl (70-99(Fasting)) H 06/03/22 Ca 9.3 mg/dl (8.5-10.1) 06/03/22 Total Bilirubin 0.5 mg/dl (0.2-1.0) 06/03/22 AST 16 U/L (13-39) 06/03/22 ALT 16 U/L (7-52) 06/03/22 Alkaline Phosphatase 68 U/L (34-104) 06/03/22 TP 7.0 gm/dl (6.0-8.3) 06/03/22 Albumin 4.0 gm/dl (3.4-5.0) 06/03/22 Globulin 3.0 gm/dl (2.5-4.0) 06/03/22 Albumin/Globulin Ratio 1.3 (0.9-2) 06/03/22 Calcium Level 9.3 mg/dl (8.5-10.1) 06/03/22 02:22 Diagnostic Findings (Past 24 Hours) Femur X-Ray 06/02/22 21:52 XR femur LT 2V routine CLINICAL HISTORY: pain after workout COMPARISON: None FINDINGS: No fracture or osseous lesion within the left femur is identified. Alignment of the left hip and left knee is anatomic. Left hip joint space is preserved. There is minimal osteophytosis of the left hip. There is medial compartment joint space narrowing of the left knee with osteophytosis within the medial and lateral compartments of the left knee. IMPRESSION: No fracture within the left femur. No osseous lesion. ACT 112: Negative or not required by law. Electronically signed by: Hu Terrell M.D. 06/03/2022 7:56 AM Venous Doppler Study 06/03/22 02:02 LEFT LOWER EXTREMITY VENOUS DOPPLER CLINICAL HISTORY: Left lower extremity edema COMPARISON STUDY: No previous studies for comparison. TECHNIQUE: Sonography of the deep venous system of the left lower extremity was performed. Compression and augmentation were evaluated. FINDINGS: There is extensive occlusive deep venous thrombus within the left lower extremity. The vessels are expanded. Note is made of dependent thrombus within the left external iliac, common femoral, femoral, popliteal, posterior tibial and peroneal veins. There is also thrombus within the left greater saphenous, lesser saphenous and gastrocnemius veins. IMPRESSION: Extensive deep venous thrombus within the left lower extremity, including thrombus within the left iliac veins. Thrombus is likely acute. ACT 112: Negative or not required by law. Electronically signed by: Hu Terrell M.D. 06/03/2022 7:46 AM Abdomen/Pelvis CT 06/03/22 04:08 CT OF THE ABDOMEN AND PELVIS WITH CONTRAST CLINICAL HISTORY: prox DVT LLE COMPARISON STUDY: None. TECHNIQUE: Following IV administration of 119 mL of Optiray, axial images of the abdomen and pelvis were obtained from the lung bases to the proximal femurs. Images were reviewed in the axial, sagittal, and coronal planes. IV contrast was administered without complication. Automated exposure control was utilized for the study. A dose lowering technique was utilized adhering to the principles of ALARA. CT DOSE: 803.17 mGy.cm FINDINGS: Please note that the chest CT will be reported separately. There is a small hiatal hernia. No pneumatosis, free air or portal venous gas is present. Liver, spleen spleen and pancreas are unremarkable as are the kidneys. There is a 1.6 cm left adrenal nodule and a 1 cm right adrenal nodule. No abdominal or pelvic lymphadenopathy is present. No evidence for a bowel obstruction. Caliber and wall thickness of small and large bowel are normal. There is extensive thrombus within the left common iliac, external iliac, internal iliac, common femoral and visualized portions of the superficial femoral vein. This corresponds the thrombus shown on ultrasound. Thrombus slightly extends into the IVC. There is mild compression of the left common iliac vein by the right common iliac artery. Stranding adjacent to the vessels is noted as well as within the left thigh. A 3.9 cm enhancing focus within the anterior aspect of the uterine body is present. IMPRESSION: 1. Extensive deep venous thrombus within the left common iliac, external iliac, internal iliac, common femoral and superficial femoral veins. Thrombus slightly extends into the IVC. Mild compression of the left common iliac vein by the right common iliac artery. This distribution raises the possibility of May Thurner syndrome although this typically occurs in younger patients. Vessels expanded with adjacent stranding. This thrombus is likely acute. Findings discussed with Dr. Ryder at time of dictation. 2. 3.9 cm enhancing lesion within the anterior aspect of the uterine body. This probably reflects a fibroid however a nonemergent pelvic ultrasound is recommended. 3. Bilateral adrenal nodules measuring up to 1.6 cm. These are indeterminate but statistically benign in the absence of known malignancy and favor adenomas. ACT 112: Negative or not required by law. Electronically signed by: Hu Terrell M.D. 06/03/2022 7:10 AM Chest CTA 06/03/22 04:08 CT ANGIOGRAM OF THE CHEST CLINICAL HISTORY: Dyspnea. Lower extremity edema. Deep venous thrombosis. COMPARISON STUDY: Chest x-ray dated 04/06/2019. TECHNIQUE: Following the IV administration of 119 cc of Optiray 320, CT angiogram of the chest was performed from the upper abdomen to the thoracic inlet utilizing the pulmonary embolus protocol. Images are reviewed in the axial, sagittal, and coronal planes. 3-D MIPS images are created and assessed. IV contrast was administered without complication. A dose lowering technique was utilized adhering to the principles of ALARA. FINDINGS: Thyroid: Mildly enlarged and heterogeneous. Thoracic aorta: There is moderate atherosclerotic calcification of the thoracic aorta, which is normal in caliber and demonstrates standard 3-vessel arch anatomy. No dissection is seen. Pulmonary vasculature: The pulmonary trunk is normal in caliber. There are no filling defects identified in main, lobar, or segmental pulmonary branches to suggest pulmonary embolus. Heart: The heart is top normal in size and without pericardial effusion. Lungs and pleural spaces: Evaluation of the lung parenchyma is degraded by mo tion artifact. There is no airspace consolidation or pleural effusion. Atelectasis is noted at the lung bases. Minimal secretions are seen within the trachea. There is a 5 mm right lower lobe pulmonary nodule seen on image #149. Mediastinum: There is no mediastinal lymphadenopathy. Zita: Clear. Axillae: There is no axillary lymphadenopathy. Upper abdomen: There is a small hiatal hernia. Bilateral adrenal adenomas measure up to 1.6 cm. Skeletal structures: The skeletal structures are osteopenic. Degenerative change is noted in the thoracic spine. No lytic or blastic bony lesions are seen. IMPRESSION: 1. There is no evidence of pulmonary embolus in the main, lobar, or segmental pulmonary arteries. 2. There is no airspace consolidation or pleural effusion. 3. There is a 5 mm right lower lobe pulmonary nodule. This is pathologically indeterminate and can be followed as per Fleischner criteria. See below. 4. Additional findings as above. Please refer to below summary of Fleischner criteria recommendations for follow- up of incidental CT nodules (Byron Ignacio, Guidelines for management of small pulmonary nodules detected on CT scans: A statement from the Fleischner Society, Radiology 237: [phone].) SOLID NODULES Solitary nodule size: <6 mm * low risk patients: no follow-up needed * high risk patients: optional CT at 12 months Solitary nodule size: 6-8 mm * low risk patients: follow-up at 6-12 months, then consider further follow-up at 18-24 months * high risk patients: initial follow-up CT at 6-12 months and then at 18-24 months if no change Solitary nodule size: >8 mm * either low or high risk patients - consider follow-up CT at 3 months, and/or CT-PET, and/or biopsy Multiple nodules size: <6 mm * low risk patients: no routine follow-up * high risk patients: optional CT at 12 months Multiple nodules size: 6-8 mm * low risk patients: follow-up at 3-6 months, then consider further follow-up at 18-24 months * high risk patients: follow-up at 3-6 months, then at 18-24 months if no change Multiple nodules size: >8 mm * low risk patients: follow-up at 3-6 months, then consider further follow-up at 18-24 months * high risk patients: follow-up at 3-6 months, then at 18-24 months if no change Note: newly detected indeterminate nodule in persons 35 years of age or older. * low risk patients: minimal or absent history of smoking and/or other known risk factors * high risk patients: history of smoking or of other known risk factors (e.g. first degree relative with lung cancer, or exposure to asbestos, radon, uranium) * if a nodule up to 8 mm is partly solid or is ground glass further follow-up is required after 24 months to exclude possible slow growing adenocarcinoma (TEJAL) SUBSOLID NODULES Solitary pure ground-glass nodule * nodule size <6 mm - no CT follow-up required * nodule size >=6 mm - follow-up CT at 6-12 months, then every 2 years until 5 years Solitary part-solid nodule * nodule size <6 mm - no CT follow-up required * nodule size >=6 mm - follow-up CT at 3-6 months. If unchanged, and solid component remains <6 mm, then annual follow-up for 5 years Multiple subsolid nodules * nodule size <6 mm - follow-up CT at 3-6 months, consider further follow-up at 2 and 4 years if stable * nodule size >=6 mm - follow-up CT at 3-6 months, subsequent management based on the most suspicious nodule(s) ACT 112: Negative or not required by law. Electronically signed by: Raheem Couch M.D. 06/03/2022 8:41 AM I & O Totals 24 Hours 06/02/22 06/03/22 06/04/22 06:59 06:59 06:59 Intake Total 500 / 500 Balance 500 / 500 Cumulative 06/02/22 21:24 thru 06/03/22 05:12 Intake Total 500 Balance 500 RT Ventilator Mngmt (Last Documented) Ventilator Ordered Settings Respiratory Rate 18 06/03/22 09:00 Ventilator - PT Measurements Respiratory Rate 18 Code Status & VTE Plan Code Status Full resuscitation, level I VTE Prophylaxis Plan VTE Prophylaxis will be ordered: Yes Supervising Physician Co-Signing Physician Notes Patient was seen and examined independently I discussed the case with Raheem DILLON I reviewed pertinent past medical social family history and also the plan of care and agree with the plan of care. Patient presents with groin pain and has appears to be an unprovoked substantial left lower leg DVT the extent of this extent goes to the inferior vena cava. Vascular surgery recommends parenteral heparin with a possible 72 hours bedrest. Patient has been keeping up with her health maintenance and has no overt concerns likewise she has not had previous venous thromboembolism's in her life no other associated risk factors currently is relatively stable though having some leg pain Patient is initiated on heparin infusion in the ER therapeutic dosing Emergency department her cardiac exam is regular lungs were clear her lower extremities have very little edema to her distal legs although there is some more edema more proximally Continue with parenteral heparin with discussion of duration versus transition to a DOAC Any exceptions will be noted below PG Care Time/CCT Total # of Minutes Spent Total Time Spent with Patient: Total time spent is greater than 50% in coordination of care (as documented) at patient's floor/unit and/or counseling patient: 65 minutes including 40 minutes with the patient and discussion with vascular surgery Coding Level of Care Code 98021 Initial Inpt Care Lvl 3 Diagnoses DVT (deep venous thrombosis) I82.409 Dyslipidemia E78.5 Hypertension I10 Hypertension type: essential hypertension Osteopenia M85.80 Prediabetes R73.03 DVT prophylaxis Z29.9 Time Spent (min) 65 (1) Hypertension Hypertension type: essential hypertension Qualified Code(s): I10 - Essential (primary) hypertension
[2022-06-03] MEDS ORDERED: POLYETHYLENE (MIRALAX) 17 GM PACK PO PRN (12:05)
[2022-06-03] MEDS ORDERED: ACETAMINOPHEN 325 MG TAB PO PRN (12:05)
[2022-06-03] MEDS ORDERED: ALUMINUM/MAGNESIUM SUSP 30 ML UDC PO PRN (12:05)
[2022-06-03] MEDS ORDERED: MAGNESIUM HYDROXIDE SUSP 30 ML UDC PO PRN (12:05)
[2022-06-03] MEDS ORDERED: ONDANSETRON INJ 2 MG/ML 2 ML VIAL IV PRN (12:05)
[2022-06-03] MEDS: ATORVASTATIN 10 MG TAB PO SCH (13:41)
[2022-06-03] MEDS: lisinopril 20 MG TAB PO SCH (13:41)
[2022-06-03] MEDS ORDERED: PERFLUTREN LIPID MICROSPHERE (DEFINITY) IV ONE (14:47)
--- NOTE | 2022-06-03 15:39 | Ultrasound Report ---
PELVIC ULTRASOUND CLINICAL HISTORY: 3.9 cm uterine lesion, B/L 1.6cm adrenal nodules COMPARISON STUDY: CT of the abdomen and pelvis performed earlier today. TECHNIQUE: Transabdominal sonography of the pelvis was performed. Transvaginal imaging was deferred. FINDINGS: Uterus measures 6.9 x 4.7 x 3.7 cm. Endometrium measures 4 mm in thickness. There is a 3.5 cm hypoechoic lesion within the anterior uterine body. This corresponds to the finding on CT. The ova josette were not visualized. No adnexal masses are identified. IMPRESSION: 1. 3.5 cm anterior uterine body lesion which corresponds to the finding on CT. This is suggestive of a fibroid. 2. Nonvisualization of the ovaries. No adnexal masses. ACT 112: Negative or not required by law. Electronically signed by: Hu Terrell M.D. 06/03/2022 3:37 PM
--- NOTE | 2022-06-03 16:18 | XCELERA ---
[id number]
[2022-06-03 16:57] LABS: Partial Thromboplastin Ratio 2.7
[2022-06-03 17:22] LABS: Partial Thromboplastin Time 75.4 Seconds (21.0-31.0)
[2022-06-04 00:35] LABS: Partial Thromboplastin Ratio 2.3
[2022-06-04 00:41] LABS: Partial Thromboplastin Time 63.8 Seconds (21.0-31.0)
[2022-06-04] MEDS: HEPARIN SODIUM/DEXTROSE 25,000 UNITS/500 ML BAG IV SCH (03:46)
[2022-06-04 07:03] LABS: Basophils # (auto) 0.05 K/uL (0-0.2); Basophils % (auto) 0.5 %; Eosinophils # (auto) 0.43 K/uL (0-0.50); Eosinophils % (auto) 4.3 %; Hematocrit (blood only) 36.7 % (34.1-44.9); Hemoglobin 12.1 g/dl (12.0-16.0); Immature Granulocytes # (auto) 0.07 K/uL (0.00-0.02); Immature Granulocytes % (auto) 0.7 %; Lymphocytes # (auto) 1.79 K/uL (1.2-3.4); Lymphocytes % (auto) 17.9 %; Mean Corpuscular Hemoglobin 28.7 pg (25.0-34.0); Mean Corpuscular Volume 87.2 fL (80.0-100.0); Mean Platelet Volume 10.6 fL (9.4-12.3); Monocytes # (auto) 0.67 K/uL (0.24-0.82); Monocytes % (auto) 6.7 %; Neutrophils # (auto) 6.97 K/uL (1.4-6.5); Neutrophils % (auto) 69.9 %; Platelet Count 158 K/uL (130-400); RDW Coefficient of Variation 13.2 % (11.5-14.5); RDW Standard Deviation 42.1 fL (36.4-46.3); Red Blood Count 4.21 M/uL (3.93-5.22); White Blood Count 9.98 K/ul (4.8-10.8)
[2022-06-04 07:29] LABS: BUN Creatinine Ratio 34.4 (10-20); Calcium 8.9 mg/dl (8.5-10.1); Creatinine Clr Calc Pharmacy 87.1 ml/min; Est GFR (Non-African American) 90.6 ml/min; Potassium 3.7 mmol/L (3.5-5.1)
[2022-06-04] MEDS: CHOLECALCIFEROL 1,000 UNITS 25 MCG TAB PO SCH (07:58)
[2022-06-04] MEDS: ATORVASTATIN 10 MG TAB PO SCH (07:58)
[2022-06-04] MEDS: CALCIUM 600MG + VIT D 400 IU TAB PO SCH (07:58)
[2022-06-04] MEDS: lisinopril 20 MG TAB PO SCH (07:58)
[2022-06-04 08:11] LABS: Partial Thromboplastin Ratio 2.8
[2022-06-04 08:31] LABS: Partial Thromboplastin Time 76.1 Seconds (21.0-31.0)
--- NOTE | 2022-06-04 09:12 | Electrocardiogram Report ---
Test Reason : Blood Pressure : / mmHG Vent. Rate : 070 BPM Atrial Rate : 070 BPM P-R Int : 110 ms QRS Dur : 080 ms QT Int : 370 ms P-R-T Axes : 030 010 -17 degrees QTc Int : 399 ms Sinus rhythm with short NE Diffuse Minor Nonspecific ST and T wave abnormality Abnormal ECG When compared with ECG of 13-MAR-1996 15:35, QT has shortened Confirmed by Reg Luu ([id number]) on 06/04/2022 9:11:33 AM Referred By: REFERRED SELF Confirmed By:Reg Luu
--- NOTE | 2022-06-04 10:51 | XRay Report ---
XR chest 1V portable HISTORY: Dyspnea. Extensive left lower extremity DVT into IVC COMPARISON: Chest CTA 06/03/2022. FINDINGS: The cardiac silhouette remains borderline enlarged. No new focal lung consolidations to sug gest pneumonia. No evidence for pulmonary edema. No pleural effusions. No pneumothorax. Small linear scarlike density noted within the left midlung zone. IMPRESSION: No acute process. ACT 112: Negative or not required by law. Electronically signed by: Murali Slade M.D. 06/04/2022 10:49 AM
[2022-06-04] MEDS: ENOXAPARIN 100 MG/1ML SYR SQ SCH (13:27)
[2022-06-04] MEDS ORDERED: HOLD HEPARIN ORDER ONE (14:00)
--- NOTE | 2022-06-04 16:48 | Hospitalist Progress Note ---
Date of Service June 04, 2022 Assessment & Plan (1) DVT (deep venous thrombosis): Plan: Attending: Dr. Julien Impression: 72-year-old female found to have extensive DVT from the IVC down to the superficial femoral veins. CTA of the chest was negative for pulmonary embolus or acute findings. Patient is a lifelong non-smoker with no history of malignancy or family history of thromboembolic disease. This would be classified as an unprovoked DVT without clear etiology at this time. Started on heparin gtt on admission. No acute changes or complaints overnight. Recommendations: * No acute events overnight. This morning.No EKG changes or ST changes. CXR with no evidence of acute cardiopulmonary changes * Patient most likely will be required to be on lifelong anticoagulation * Williamson cath is elevated. Homocystine level is still pending * Patient started on anticoagulations and no further hypercoagulable work-up at this time. * Patient has no history of malignancy. She does have history of adenomatous polyps which have been cleared through serial colonoscopy * New imaging does reveal a right lower lobe 5 mm nodule. This is too small to biopsy at this time. Fleischner criteria suggest serial CTs for monitoring * Patient also has 3.9 cm enhancing lesion within the anterior aspect of the uterine body. Pelvic ultrasound performed and these appear to be fibroids. Would follow-up outpatient with [facility] * Patient with bilateral adrenal nodules measuring up to 1.6 cm. No evidence of masses on pelvic ultrasound. * Echocardiogram Negative for PFO and adherent clot. * EKG daily x2 to rule out ST changes Discussed with Dr. Elaine. At this time we will change patient from heparin drip to Lovenox 1 mg/kg twice daily. Rx sent to pharmacy for 90 mg of Lovenox twice daily for approval. Outpatient evaluation by hematology for determination of long-term anticoagulation and further work-up for unprovoked DVT Will allow patient to be out of bed with bathroom privileges but no strenuous exercise or walking outside of the room at this time. If Lovenox is approved with insurance may be able to discharge patient tomorrow or Wednesday. (2) Dyslipidemia: Plan: * Will continue with patient's atorvastatin 10 mg daily * Further work-up as an outpatient (3) Hypertension: Plan: * Hemodynamically stable * Continue patient's home dose of lisinopril 20 mg p.o. daily * EKG with no specific ST changes or arrhythmia (4) Osteopenia: Plan: * Outpatient management * Continue calcium carbonate with vitamin D (5) Prediabetes: Plan: * Most recent hemoglobin A1c in January 2022 is 6.1% * No indication for BSG's or glycemic monitoring at this time * Continue with heart healthy diet (6) DVT prophylaxis: Plan: * Extensive DVT to the left lower extremity extending into the IVC. Further management as listed above * Convert heparin drip to Lovenox. Admission and Anticipated Discharge Date Admission Date: June 03, 2022 Subjective Attending: Dr. Julien 72-year-old female admitted yesterday for unprovoked extensive DVT extending from her femoral veins into her IVC. Patient was started on heparin yesterday. No complications over the last 24 hours. Patient's edema has improved. She has less pain in her leg and groin. No arrhythmias on telemetry. No ST changes on EKG. No evidence of discovery of malignancy. Patient denies any fever, chills, sweats, rigors. No tach arrhythmia. No hemoptysis. No chest pain or tightness. No other acute complaints. Review of Systems Review of Systems: A total of 10 systems was reviewed and is negative other than as listed in the HPI Physical Exam Physical Exam: GENERAL : No acute distress EYES: No icterus, gaze conjugate NOSE: No evidence of epistaxis MOUTH: No lesions or candidiasis NECK: Supple LUNGS: CTA B/L, no wheezes, rales or rhonchi HEART: Regular, rate controlled ABDOMEN: Soft, NT, ND, BS Present EXTREMITIES: Left LE edema but improved. No tenderness to palpation. Pedal pulses intact and equal bilaterally NEURO: A&OX3 Results & Data Results & Data ([facility]) Vital Signs (Past 12 Hours) Vital Signs Temp Pulse Pulse Resp BP Pulse Ox O2 Del Method 06/04/22 15:19 89 06/04/22 08:09 36.8 C 66 18 100/66 96 Room Air 06/04/22 07:10 87 Critical Care Results & Data Vital Signs (Past 12 Hours) Vital Signs Temp Pulse Pulse Resp BP Pulse Ox O2 Del Method 06/04/22 15:19 89 06/04/22 08:09 36.8 C 66 18 100/66 96 Room Air 06/04/22 07:10 87 Lab & Micro Results (Past 24 Hours) RBC 4.21 M/uL (3.93-5.22) 06/04/22 WBC 9.98 K/ul (4.8-10.8) 06/04/22 Hgb 12.1 g/dl (12.0-16.0) 06/04/22 Hct 36.7 % (34.1-44.9) 06/04/22 MCV 87.2 fL (80.0-100.0) 06/04/22 MCH 28.7 pg (25.0-34.0) 06/04/22 MCHC 33.0 g/dL (32.0-36.0) 06/04/22 RDW Standard Deviation 42.1 fL (36.4-46.3) 06/04/22 RDW Coefficient of Variation 13.2 % (11.5-14.5) 06/04/22 Plt Count 158 K/uL (130-400) 06/04/22 MPV 10.6 fL (9.4-12.3) 06/04/22 Neutrophils (%) (Auto) 69.9 % 06/04/22 Lymphocytes (%) (Auto) 17.9 % 06/04/22 Monocytes # (Auto) 0.67 K/uL (0.24-0.82) 06/04/22 Eosinophils # (Auto) 0.43 K/uL (0-0.50) 06/04/22 Immature Granulocyte % (Auto) 0.7 % 06/04/22 Neutrophils # (Auto) 6.97 K/uL (1.4-6.5) H 06/04/22 Lymphocytes # (Auto) 1.79 K/uL (1.2-3.4) 06/04/22 Monocytes # (Auto) 0.67 K/uL (0.24-0.82) 06/04/22 Eosinophils # (Auto) 0.43 K/uL (0-0.50) 06/04/22 Basophils # (Auto) 0.05 K/uL (0-0.2) 06/04/22 Immature Granulocyte # (Auto) 0.07 K/uL (0.00-0.02) H 06/04 Na 137 mmol/L (136-145) 06/04/22 K 3.7 mmol/L (3.5-5.1) 06/04/22 Cl 104 mmol/L (98-107) 06/04/22 CO2 26 mmol/L (21-32) 06/04/22 Anion Gap 7 (3-11) 06/04/22 BUN 21 mg/dl (6-23) 06/04/22 Creatinine 0.61 mg/dl (0.6-1.2) 06/04/22 Estimated GFR ( Amer) 105.0 ml/min 06/04/22 Estimated GFR (Non-Af Amer) 90.6 ml/min 06/04/22 BUN/Creatinine Ratio 34.4 (10-20) H 06/04/22 Glu 116 mg/dl (70-99(Fasting)) H 06/04/22 Ca 8.9 mg/dl (8.5-10.1) 06/04/22 Mg 2.0 mg/dl (1.7-2.4) 06/04/22 06:00 Calcium Level 8.9 mg/dl (8.5-10.1) 06/04/22 06:00 Diagnostic Findings (Past 24 Hours) Chest X-Ray 06/04/22 07:00 XR chest 1V portable HISTORY: Dyspnea. Extensive left lower extremity DVT into IVC COMPARISON: Chest CTA 06/03/2022. FINDINGS: The cardiac silhouette remains borderline enlarged. No new focal lung consolidations to suggest pneumonia. No evidence for pulmonary edema. No pleural effusions. No pneumothorax. Small linear scarlike density noted within the left midlung zone. IMPRESSION: No acute process. ACT 112: Negative or not required by law. Electronically signed by: Murali Slade M.D. 06/04/2022 10:49 AM I & O Totals 24 Hours 06/03/22 06/04/22 06/05/22 06:59 06:59 06:59 Intake Total 500 / 500 656.433 / 656.433 237.016 / 237.016 Output Total 775 / 775 Balance 500 / 500 -118.567 / -118.567 237.016 / 237.016 Cumulative 06/02/22 21:24 thru 06/04/22 15:13 Intake Total 1393.449 Output Total 775 Balance 618.449 RT Ventilator Mngmt (Last Documented) Ventilator Ordered Settings Respiratory Rate 18 06/04/22 08:09 Ventilator - PT Measurements Respiratory Rate 18 PG Care Time/CCT Total # of Minutes Spent Total Time Spent with Patient: Total time spent is greater than 50% in coordination of care (as documented) at patient's floor/unit and/or counseling patient: Coding Level of Care Code 55939 Subseq Hosp Care Lvl 3 Diagnoses DVT (deep venous thrombosis) I82.409 Dyslipidemia E78.5 Hypertension I10 Hypertension type: essential hypertension Osteopenia M85.80 Prediabetes R73.03 DVT prophylaxis Z29.9 (1) Hypertension Hypertension type: essential hypertension Qualified Code(s): I10 - Essential (primary) hypertension
--- NOTE | 2022-06-04 22:14 | Communication Note ---
Date of Service: June 04, 2022 notified of sudden severe lower abd cramps w/ dry heaving. resolved after loose bowel movement. + some abd bloating sensation. does state perhaps had con stipation yesterday and had been bed-bound No abd ttp. + mild bilateral inguinal ttp per patient self exam. Per my assessment, etiology of symptoms more likely related to constipation as opposed to the iliac vein clots though constipation typically does not cause dry heaving. The ct abd from yesterday did not indicate bowel obstruction. Follow clinically. Daily miralax will be ordered qam. notified of blood clot as passed bowel movement. will continue therapeutic Lovenox for now. monitor
[2022-06-05] MEDS: ENOXAPARIN 100 MG/1ML SYR SQ SCH ×2 (02:51→12:35)
[2022-06-05] MEDS: ATORVASTATIN 10 MG TAB PO SCH (07:49)
[2022-06-05] MEDS: CHOLECALCIFEROL 1,000 UNITS 25 MCG TAB PO SCH (07:49)
[2022-06-05] MEDS: lisinopril 20 MG TAB PO SCH (07:50)
[2022-06-05] MEDS: CALCIUM 600MG + VIT D 400 IU TAB PO SCH (07:50)
--- NOTE | 2022-06-05 08:47 | Electrocardiogram Report ---
Test Reason : Blood Pressure : / mmHG Vent. Rate : 073 BPM Atrial Rate : 073 BPM P-R Int : 126 ms QRS Dur : 076 ms QT Int : 364 ms P-R-T Axes : 056 066 014 degrees QTc Int : 401 ms Normal sinus rhythm Low voltage QRS Nonspecific ST and T wave abnormality Abnormal ECG When compared with ECG of 04-JUN-2022 07:04, No significant change Confirmed by Reg Luu ([id number]) on 06/05/2022 8:46:42 AM Referred By: REFERRED SELF Confirmed By:Reg Luu
[2022-06-05] MEDS ORDERED: POLYETHYLENE (MIRALAX) 17 GM PACK PO SCH (09:00)
[2022-06-05] MEDS ORDERED: INFLUENZA VACCINE HIGH DOSE PF 65+ 0.7 ML SYR IM ONE (12:00)
--- NOTE | 2022-06-05 15:09 | XRay Report ---
XR chest 1V portable HISTORY: 72 years-old Female Extensive LLE DVT into IVC acute shortness of breath COMPARISON: Chest radiograph 06/04/2022 TECHNIQUE: AP view of the chest FINDINGS: Cardiac mediastinal and hilar silhouettes are within normal limits. Atherosclerosis of the aorta. Mil d linear scarring versus atelectasis of the lateral left midlung. There is no pneumothorax, pleural e ffusion, airspace consolidation or overt pulmonary edema. Bones of the chest appear grossly intact. IMPRESSION: No acute process. ACT 112: Negative or not required by law. The above report was generated using voice recognition software. It may contain grammatical, syntax o r spelling errors. Electronically signed by: Richi Brooke M.D. 06/05/2022 3:07 PM
--- NOTE | 2022-06-05 15:54 | Discharge Summary ---
Date of Service June 05, 2022 Admission HPI Per Admitting Provider Attending: Dr. Julien This is a 72-year-old female with a past medical history including hypertension, hypercholesterolemia, osteopenia, prediabetes, vitamin D deficiency, adenomatous polyp of the sigmoid colon, obesity with a BMI of 34.2 kg/m secondary to excess calories. This is a very active female who walks 1-1/2 hours/day, she golfs, she is active with no recent periods of sedentary activity or travel. Patient was in her usual state of health until this past weekend when she started having some groin pain on the left side. This pain seemed to extend into her leg and thigh throughout the weekend. She attempted to use ice and heat as well as rubbing her leg to resolve the achiness. As this progressed patient suggested to her that it was probably a DVT and they decided to present to the emergency department for evaluation. She then had a venous Doppler study which showed extensive deep venous thrombus within the left lower extremity including thrombus within the left iliac vein. Inasmuch as this was unprovoked with no prior history of malignancy, hormone replacement, tobacco abuse history, a CT of the abdomen pelvis as well as a chest CTA was performed. This revealed extensive deep venous thrombus within the left common iliac, external iliac, internal iliac, common femoral and superficial femoral veins. The thrombus extended into the IVC. There was mild compression of the left common iliac vein by the right common iliac artery. There is also a 3.9 cm enhancing lesion within the anterior aspect of the uterine body. Bilateral adrenal nodules measuring up to 1.6 cm and are statistically benign favoring adenomas. Patient has no history of malignancy. She is up-to-date with her mammograms. She was found to have a precancerous polyp on colonoscopy and gets regular colonoscopies which have all been cleared up. Patient has a sister who in her 60s of glioblastoma. Father at age 74 of a myocardial infarction. Mother at age 92 of old age with no acute etiology. Patient is a lifelong non-smoker and has no exposure to carcinogenic's that she is aware of. Patient has no acute shortness of breath. She has no pleural pain. She has no awareness of tachyarrhythmia. She has no hypoxia on room air. Vital signs are stable including temperature is 37.0 C Case was discussed with Dr. Simoni from vascular surgery. He agrees with hepa rin drip for its anti-inflammatory properties and management. Currently recommending 3 days of bedrest followed by oral anticoagulation. No indication for catheter directed thrombolysis or surgical thrombolysis. Case also discussed with Dr. Julien. Please refer to his addendum for recommendations and corrections. Principal Diagnosis Massive DVT left lower extremity Discharge Exam The patient appeared stable Vital signs as documented. Left lower extremity has receding with his edema it is not tender to touch there is no cords or Homans' sign Neurologic exam is alert and oriented, no focal loss of strength or sensation Skin is without bruises or rashes Psychologically is without concerns for anxiety or depression. Discharge Data Allergies Allergy/AdvReac Type Severity Reaction Status Date / Time Penicillins Allergy Unknown Unknown Verified 06/03/22 01:37 amlodipine AdvReac Intermediate fatigue Verified 06/03/22 01:37 atenolol AdvReac Intermediate Fatigued Verified 06/03/22 01:37 metoprolol [From Lopressor] AdvReac Intermediate Fatigued Verified 06/03/22 01:37 Consultations 06/03/22 06:54 ED Decision to Admit Stat Ordered Studies 06/03/22 02:02 US venous doppler LE LT Urgent 06/03/22 04:08 CT abd pelvis IV con only Urgent CT angio chest PE protocol Urgent 06/03/22 12:05 US Pelvis [US pelvic complete] Routine Hospital Course (1) DVT (deep venous thrombosis): Impression: 72-year-old female who was in her usual state of health until this weekend when being she began having left groin pain. Pain extended into her left upper leg and she noticed swelling of her thigh and calf. She presented to the emergency department was found to have extensive DVT from the IVC down to the superficial femoral veins. CTA of the chest was negative for pulmonary embolus or acute findings. Patient is a lifelong non-smoker with no history of malignancy or family history of thromboembolic disease. This would be classified as an unprovoked DVT without clear etiology at this time. * Discussed with Dr. Kelly vascular surgery. He agrees with heparin drip per protocol. * Discussed the case with Dr. 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 She does have history of adenomatous polyps which have been cleared through serial colonoscopy * New imaging does reveal a right lower lobe 5 mm nodule. Follow-up CT of the chest in 3 months would be recommended. * Patient also has 3.9 cm enhancing lesion within the anterior aspect of the uterine body. While this is most likely a fibroid, as suggested by pelvic ultrasound * Patient with bilateral adrenal nodules measuring up to 1.6 cm. Statistically benign * Echocardiogram normal did rule out PFO and adherent clot, EKG is within normal limits and there is no evidence of tachyarrhythmia. * Pt to be discharged on lovenox 90 units sc bid (2) Dyslipidemia: * Will continue with patient's atorvastatin 10 mg daily * Further work-up as an outpatient (3) Hypertension: * Hemodynamically stable * Continue patient's home dose of lisinopril 20 mg p.o. daily * Monitor on telemetry with vital signs per protocol * EKG with no specific ST changes or arrhythmia (4) Osteopenia: * Outpatient management * In addition to patient's calcium carbonate with vitamin D, will start patient on multivitamin (5) Prediabetes: * Most recent hemoglobin A1c in January 2022 is 6.1% * No indication for BSG's or glycemic monitoring at this time * Continue with heart healthy diet (6) DVT prophylaxis: * Extensive DVT to the left lower extremity extending into the IVC. Further management as listed above * Continue heparin drip. Anticipate changing to oral anticoagulant prior to discharge Please refer to Dr. Julien's addendum for further recommendations and corrections. Total Time Total Time Spent Total Time Spent (In Minutes): It required greater than 30 minutes to prepare this patient for discharge Discharge Plan Discharge Items Patient Disposition: Home - Self-Care Reason For Visit: EXTENSIVE LLE DVT Discharge Diagnosis: massive Left lower extremituy DVT Activity: Per Instructions section Activity Comment: continue rest for another day Non-emergency contact: Primary Care Provider Call non-emergency contact if: your symptoms worsen Follow-up/Referrals: Anticoagulation Clinic [Other] - 06/11/22 11:00 am Jeremy Toledo MD [Primary Care Provider] - 06/16/22 11:45 am (THIS APPOINTMENT WILL BE WITH ASHWINI MCCAULEY PA-C.) Diet: Regular Addtl Attending Provider Instructions: It will be likely that you will transition from your Lovenox to another agent, we had spoken to Dr Elaine who is our local anticoagulation expert, we will have an appointment set up for the anticoagulation clinic and also as a primary care follow up with Dr Toledo keep your leg elevated when not standing or walking, after about another day or two consider compression stockings to thigh or better yet compression tights Medication Instructions: Your condition is typically treated with an anticoagulant. Anticoagulants will thin your blood to help prevent new clots. * You should take her medication exactly as directed. * Never skip a dose. * Never take a double dose. If you miss a dose, take it as soon as you remembe r. Call your Primary Care doctor if you experience any of the following: * Swelling or Pain in your leg * Sudden, continuous pain deep in a muscle * Pain that worsens when you are active or when you stand still for a long time * Chest Pain * Sudden Shortness of Breath * Rapid or pounding heart beat * Fainting * Dizziness * Cough with blood or bloody sputum * Sweating more than normal * Bruises * Heavy or uncontrolled bleeding * Blood in your urine, stool or vomit * Black or tarry stools Caring for Your Self at Home: * Avoid sitting, standing or lying down for long periods without moving your legs and feet * When traveling by car, stop to get out and move around at least once every 3 hours * On long airplane, train or bus rides, get up and move around when possible * If you can't get up, wiggle your toes and tighten your calves to keep your blood moving Follow Up: It is important for you to keep your follow up appointments with your medical provider. Pending Studies at Discharge: Yes Studies:: there are some send out blood tests that will be interpreted by your follow up providers Stand-Alone Forms: My [facility] Medications and DC Order Prescriptions: New enoxaparin 100 mg/mL Syringe 90 mg subcut Q12H Qty: 20 5RF Continued cholecalciferol (vitamin D3) 125 mcg (5,000 unit) capsule 1,000 unit PO DAILY calcium carbonate-vitamin D3 600 mg calcium- 200 unit capsule 1 cap PO DAILY atorvastatin 10 mg tablet 10 mg PO DAILY Rx Instructions: TAKE 1 TABLET DAILY lisinopril 20 mg tablet 20 mg PO DAILY Rx Instructions: TAKE 1 TABLET DAILY Discharge Orders: Discharge Order (Routine); Ordered 06/05/22 Ordered By: Javed Julien Admission Data Admit Date/Time: 06/03/22 09:29 Attending Provider: Javed Julien Admit Provider: Javed Julien Primary Care Provider: Jeremy Toledo Other Providers: Martine Evans Other Interventions: Discharge Summary Assessment (RN) Last Done: 06/05/22 13:36 Coding Level of Care Code D/C DAY MANAGEMENT >30 MINS Diagnoses DVT (deep venous thrombosis) I82.409 Dyslipidemia E78.5 Hypertension I10 Hypertension type: essential hypertension Osteopenia M85.80 Prediabetes R73.03 DVT prophylaxis Z29.9
[2022-06-11 10:42] LABS: Anti Cardiolipin Ab IgG <2.0 GPL-U/mL; Anti Cardiolipin Ab IgM 7.6 MPL-U/mL; B2 Glycoprotein IgG <2.0 U/mL (<20.0); B2 Glycoprotein IgM 6.6 U/mL (<20.0); PTT LA Screen 53 sec (<=40); Protein S Functional(Activity) 75 % normal (60-140)
[2022-06-11 13:40] LABS: Lupus Hex Phase (Rflxdonotord) Weak Positive (Negative)
== END 2022-06-05 14:32 | disposition home or self-care (01) | DRG 301 ==
LOC: ED 21:24 → EDINP 06-03 09:29 → 2N 06-03 10:47